=== PATIENT | male | born 1960 | race Caucasian/White ===

== ENCOUNTER 2017-10-21 03:51 | Emergency (ER) | payer OTHER, MEDICARE ==
[~2017-10-21] VITALS: Ht 182.9 cm; Wt 103.0 kg
[2017-10-21] MEDS ORDERED: MORPHINE SULFATE 4 MG/ML, 1ML ONE ×2 (04:15→05:27)
[2017-10-21] MEDS: MORPHINE SULFATE 4 MG/ML, 1ML IVPush PRN ×2 (04:17→05:30)
[2017-10-21] MEDS ORDERED: CYCL5TAB PO (04:29)
[2017-10-21] MEDS ORDERED: ASPI-496 PO (04:29)
[2017-10-21] MEDS ORDERED: GABA300C10 PO (04:29)
[2017-10-21] MEDS ORDERED: CARV3.122 PO (04:29)
[2017-10-21] MEDS ORDERED: TAMS-11 PO (04:29)
[2017-10-21] MEDS ORDERED: GLIP5TAB10 PO (04:29)
[2017-10-21] MEDS ORDERED: FURO-93 PO (04:29)
[2017-10-21] MEDS ORDERED: HYDR-3307 PO (04:29)
[2017-10-21] MEDS ORDERED: AMLO10TA2 PO (04:29)
[2017-10-21] MEDS ORDERED: NORT10CA PO (04:29)
[2017-10-21] MEDS ORDERED: TICA90TA PO (04:29)
[2017-10-21] MEDS ORDERED: PLEASE ENTER ALLERGIES MC SCH (04:30)
[2017-10-21 04:36] LABS: BASOPHILS # (AUTO) 0.04 x10^3/uL (0-0.1); BASOPHILS % (AUTO) 0 % (0-1); EOSINOPHILS % (AUTO) 0 % (1-7); LYMPHOCYTES # (AUTO) 1.04 x10^3/uL (1-3.4); LYMPHOCYTES % (AUTO) 9 % (22-44); MD NO; MEAN CORPUSCULAR HEMOGLOBIN 28.5 pg (27.5-34.5); MEAN CORPUSCULAR HGB CONC 33.2 g/dL (33.2-36.2); MEAN CORPUSCULAR VOLUME 85.8 fL (81-97); MEAN PLATELET VOLUME 7.9 fL (7.4-10.4); MONOCYTES % (AUTO) 6 % (2-9); NEUTROPHILS # (AUTO) 9.24 x10^3/uL (1.8-6.8); NEUTROPHILS % (AUTO) 84 % (42-75); PLATELET COUNT 277 x10^3/uL (130-400); RED BLOOD COUNT 5.09 x10^6/uL (4.38-5.82); RED CELL DISTRIBUTION WIDTH 15.4 % (9.4-14.8)
[2017-10-21 04:48] LABS: ALBUMIN 3.6 g/dL (3.4-5.0); ANION GAP 9 mmol/L (5-15); CALCIUM 8.6 mg/dL (8.5-10.1); CHLORIDE 98 mmol/L (98-107)
[2017-10-21 04:49] LABS: CREATININE 4.85 mg/dL (0.7-1.3)
[2017-10-21 04:50] LABS: CULTURE INDICATED? YES; MICROSCOPIC AUTO
[2017-10-21 04:51] LABS: TROPONIN I < 0.015 ng/mL (0.000-0.045)
[2017-10-21] MEDS ORDERED: METHOCARBAMOL 750 MG TABLET PO ONE (05:00)
[2017-10-21] MEDS ORDERED: METHOCARBAMOL 750 MG TABLET ONE (05:01)
[2017-10-21 06:49] VITALS: BP 143/78
== END 2017-10-21 06:54 | disposition home or self-care (01) ==
LOC: ED 06:48
DX: S39.012A Strain of muscle, fascia and tendon of lower back, initial encounter (principal); M54.16 Radiculopathy, lumbar region; M54.41 Lumbago with sciatica, right side; N30.00 Acute cystitis without hematuria; I12.0 Hypertensive chronic kidney disease with stage 5 chronic kidney disease or end stage renal disease; N18.6 End stage renal disease; Z99.2 Dependence on renal dialysis; E11.40 Type 2 diabetes mellitus with diabetic neuropathy, unspecified; X58.XXXA Exposure to other specified factors, initial encounter; Y93.89 Activity, other specified; Y92.89 Other specified places as the place of occurrence of the external cause; Y99.8 Other external cause status; Z87.891 Personal history of nicotine dependence
CPT/HCPCS: 36415; 80048; 81001; 82040; 84484; 85025; 87086; 93005; 96374; 96376